=== PATIENT | female | born 1945 | race Caucasian/White ===

== ENCOUNTER → 2019-04-26 | Outpatient (CLI) | payer MEDICARE, BC | END | disposition home or self-care (01) | LOC: Rad HDHVI 13:16 | PROVIDERS: ATTEND Internal Medicine Cardiovascular Disease | DX: I25.10 Atherosclerotic heart disease of native coronary artery without angina pectoris (principal); E78.00 Pure hypercholesterolemia, unspecified | CPT/HCPCS: 78452; 93017; 96374; A9500 ==

== ENCOUNTER → 2020-06-15 | Outpatient (CLI) | payer MEDICARE, BC | END | disposition home or self-care (01) | LOC: Rad HDHVI 13:04 | PROVIDERS: ATTEND Internal Medicine Cardiovascular Disease | DX: I05.8 Other rheumatic mitral valve diseases (principal); I71.2 Thoracic aortic aneurysm, without rupture; J44.9 Chronic obstructive pulmonary disease, unspecified; R06.02 Shortness of breath | CPT/HCPCS: 93306 ==

== ENCOUNTER → 2020-06-27 | Outpatient (CLI) | payer MEDICARE, BC ==
[~2020-06-27] VITALS: Ht 177.8 cm; Wt 85.3 kg
== END | disposition home or self-care (01) ==
LOC: Rad HDHVI 09:02
PROVIDERS: ATTEND Internal Medicine Cardiovascular Disease
DX: I10 Essential (primary) hypertension (principal); E78.00 Pure hypercholesterolemia, unspecified; R06.02 Shortness of breath; J44.9 Chronic obstructive pulmonary disease, unspecified
CPT/HCPCS: 78452; 93017; 96374; A9500

== ENCOUNTER → 2020-11-10 | Outpatient (CLI) | payer MEDICARE, BC | END | disposition home or self-care (01) | LOC: Rad HDHVI 12:04 | PROVIDERS: ATTEND Internal Medicine Cardiovascular Disease | DX: Z01.818 Encounter for other preprocedural examination (principal); I70.0 Atherosclerosis of aorta | CPT/HCPCS: 71046 ==

== ENCOUNTER 2020-12-27 06:06 | Inpatient (IN) | payer MEDICARE, BC ==
[2020-12-27] VITALS (12 sets, daily range): BP systolic 88–141; BP diastolic 53–84
[~2020-12-27] VITALS: Ht 177.8 cm; Wt 89.3 kg
[~2020-12-27 06:06] MED LIST: ALBUAER3 IN; ASCO500T11 PO; ASHW1CAP PO; B-COCAP4 PO; CHOL20007 PO; FLUT1AER3 IN; HYDR-4188 PO; MAGN400T40 PO; MULTCAP45 PO; OLME20TA53 PO; OMEP20TA PO; POTA1080 PO; PRAV20TA3 PO; REVE175S IN; TURM450C PO; VITA100T3 PO; ZINC100T5 PO
[2020-12-27] MEDS ORDERED: CELECOXIB 100 MG CAP PO ONE (06:30)
[2020-12-27] MEDS ORDERED: PREGABALIN CAPSULE 75 MG CAP PO ONE (06:30)
[2020-12-27] MEDS ORDERED: ACETAMINOPHEN IV 1000 MG/100ML (10MG/ML) IV ONE (06:30)
[2020-12-27] MEDS ORDERED: VANCOMYCIN HCL 1000 MG VL ONE ×2 (06:31→07:01)
[2020-12-27] MEDS ORDERED: TRANEXAMIC ACID 20 ML ONE (06:59)
[2020-12-27] MEDS ORDERED: BUPIVACAINE 0.25% INJ 50ML VIAL ONE (06:59)
[2020-12-27] MEDS ORDERED: KETOROLAC TROMETH 30 MG/ML 1ML VIAL ONE (07:01)
[2020-12-27] MEDS ORDERED: TETRACAINE 1% INJ 2 ML VIAL IJ ONE ×2 (07:06→07:08)
[2020-12-27] MEDS ORDERED: SODIUM CHLORIDE LOCK 10 ML ONE (07:13)
[2020-12-27] MEDS ORDERED: fentaNYL CITRATE 100 MCG/2 ML VL ONE (07:13)
[2020-12-27] MEDS ORDERED: MORPHINE SULF(PF) 0.5MG/ML 10ML VIAL ONE (07:13)
[2020-12-27] MEDS ORDERED: ONDANSETRON HCL 4 MG/2 ML VIAL ONE (07:13)
[2020-12-27] MEDS ORDERED: MIDAZOLAM HCL 1MG/1ML-2 ML VIAL ONE (07:13)
[2020-12-27] MEDS ORDERED: PROPOFOL 10 MG/ML 20 ML IV ONE (07:13)
[2020-12-27] MEDS ORDERED: EPINEPHrine HCL 1 MG/1 ML AMP ONE (07:15)
[2020-12-27] MEDS ORDERED: diphenhdrAMINE HCL 50 MG/1 ML VL IV PRN (09:45)
[2020-12-27] MEDS: LACTATED RINGER'S 1,000 ML IV SCH ×2 (09:45→23:01)
[2020-12-27] MEDS ORDERED: traMADol HCL 50 MG TAB PO PRN (09:45)
[2020-12-27] MEDS ORDERED: NALOXONE HCL 0.4 MG/ML VIAL IV PRN (09:45)
[2020-12-27] MEDS ORDERED: HYDROcodone-ACET 5/325MG TAB PO PRN (09:45)
[2020-12-27] MEDS ORDERED: BISACODYL 5 MG EC TAB PO PRN (09:45)
[2020-12-27] MEDS ORDERED: MORPHINE SULF INJ 2 MG/ML SYRINGE 1ML IV PRN (09:45)
[2020-12-27] MEDS ORDERED: NALBUPHINE HCL 10 MG/1ml INJECTION SUBCUT ONE (09:45)
[2020-12-27] MEDS ORDERED: ONDANSETRON HCL 4 MG/2 ML VIAL IV PRN (09:45)
[2020-12-27] MEDS ORDERED: HYDROmorphone HCL 2 MG/ML VL IV PRN ×2 (09:45)
[2020-12-27] MEDS ORDERED: DexAMETHasone SOD PHOS 10MG/1ML VIAL INJ IV PRN (09:45)
[2020-12-27] MEDS ORDERED: NITROGLYCERIN 0.4 MG SL TAB SL PRN (09:45)
[2020-12-27] MEDS ORDERED: diphenhdrAMINE HCL 50 MG/1 ML VL ONE (09:50)
[2020-12-27] MEDS ORDERED: ALBUTEROL SULF HFA 90MCG INH 200DOSE IN SCH (10:00)
[2020-12-27] MEDS ORDERED: ASCORBIC ACID 500 MG TAB PO SCH (10:00)
[2020-12-27] MEDS ORDERED: Fluticasone-Umeclidinium-Vilan (Trelegy Ellipta 100-62.5-25 Mcg/I IN SCH (10:00)
[2020-12-27] MEDS: DOCUSATE SOD 100 MG CAP PO SCH ×2 (10:00→22:59)
[2020-12-27] MEDS: ENOXAPARIN SOD 40 MG/0.4 ML SYRINGE SC SCH (10:00)
[2020-12-27] MEDS: VANCOMYCIN 1GM/250ML 250 ML IV SCH ×2 (10:35→22:58)
[2020-12-27] MEDS: ONDANSETRON HCL 4 MG/2 ML VIAL IV PRN ×2 (13:42→19:02)
[2020-12-27] MEDS ORDERED: AZTREONAM 1GM INJ 1 GM in D5W 5% 50 ML IV SCH ×2 (14:00→22:00)
[2020-12-27] MEDS: CHOLECALCIFEROL (VITD3) 1,000UNIT=25mCg TAB PO SCH (14:14)
[2020-12-27] MEDS: PRAVASTATIN SODIUM 20 MG TAB PO SCH (14:14)
[2020-12-27] MEDS: MULTIPLE VITAMIN TAB PO SCH (14:15)
[2020-12-27] MEDS: SODIUM CHLOR 0.9% PF (SALINE LOCK) 10ML VIAL/SYR IV SCH ×2 (14:23→22:59)
[2020-12-27] MEDS ORDERED: AZTREONAM 1 GM INJ VIAL ONE (23:32)
[2020-12-28] VITALS (15 sets, daily range): BP systolic 105–137; BP diastolic 60–76
[2020-12-28] MEDS: ONDANSETRON HCL 4 MG/2 ML VIAL IV PRN ×2 (01:56→06:25)
[2020-12-28] MEDS: LACTATED RINGER'S 1,000 ML IV SCH ×2 (05:46→15:45)
[2020-12-28] MEDS: SODIUM CHLOR 0.9% PF (SALINE LOCK) 10ML VIAL/SYR IV SCH ×3 (05:47→21:51)
[2020-12-28 06:38] LABS: Hemoglobin 11.6 g/dL (12.2-16.2)
[2020-12-28 06:43] LABS: Hematocrit 33.3 % (36.0-46.0)
[2020-12-28 06:51] LABS: Potassium 4.6 mmol/L (3.5-5.1)
[2020-12-28 06:57] LABS: BUN/Creatinine Ratio 18.8; Bilirubin, Total 0.8 mg/dL (0.2-1.0); Calcium 8.9 mg/dL (8.5-10.1); Total Protein 6.3 g/dL (6.4-8.2)
[2020-12-28] MEDS: ENOXAPARIN SOD 40 MG/0.4 ML SYRINGE SC SCH (09:21)
[2020-12-28] MEDS: ASCORBIC ACID 500 MG TAB PO SCH (09:22)
[2020-12-28] MEDS: DOCUSATE SOD 100 MG CAP PO SCH ×2 (09:23→21:51)
[2020-12-28] MEDS: MULTIPLE VITAMIN TAB PO SCH (09:23)
[2020-12-28] MEDS: CHOLECALCIFEROL (VITD3) 1,000UNIT=25mCg TAB PO SCH (09:25)
[2020-12-28] MEDS ORDERED: LOSARTAN POTASSIUM 25 MG TAB PO SCH (10:00)
[2020-12-28] MEDS: PRAVASTATIN SODIUM 20 MG TAB PO SCH (10:00)
[2020-12-28] MEDS ORDERED: LEVOTHYROXINE SODIUM 25 MCG TAB PO ONE (11:30)
[2020-12-28] MEDS ORDERED: ALBUTEROL SULF 2.5 MG/0.5ML(0.5%) NEB SOLN NEB PRN (11:45)
[2020-12-28] MEDS: PANTOPRAZOLE 40 MG TAB PO SCH (12:09)
[2020-12-28] MEDS: HYDROmorphone HCL 2 MG/ML VL IV PRN ×2 (12:31→21:27)
[2020-12-28] MEDS ORDERED: KETAMINE 50mg/ML 10ml Vial (500mg/10ml) IV ONE (12:43)
[2020-12-28] MEDS: traMADol HCL 50 MG TAB PO PRN (15:25)
[2020-12-28] MEDS ORDERED: TEMAZEPAM 15 MG CAP PO ONE (22:30)
[2020-12-29] MEDS: LACTATED RINGER'S 1,000 ML IV SCH (01:45)
[2020-12-29 05:00] VITALS: BP 134/70
[2020-12-29] MEDS: KETOROLAC TROMETH 30 MG/ML 1ML VIAL IV SCH ×3 (06:28→17:47)
[2020-12-29] MEDS: SODIUM CHLOR 0.9% PF (SALINE LOCK) 10ML VIAL/SYR IV SCH ×3 (06:28→22:13)
[2020-12-29] MEDS: LEVOTHYROXINE SODIUM 25 MCG TAB PO SCH (06:28)
[2020-12-29 07:27] LABS: Basophils # (auto) 0 10 ^3/uL (0-0.2); Basophils % (auto) 0.2 % (0.0-2.0); Eosinophils # (auto) 0.1 10 ^3/uL (0-0.8); Eosinophils % (auto) 0.5 % (0.0-7.0); Hematocrit 31.1 % (36.0-46.0); Hemoglobin 10.6 g/dL (12.2-16.2); Lymphocytes # (auto) 1.2 10 ^3/uL (0.4-5.4); Lymphocytes % (auto) 10.7 % (10.0-50.0); Mean Corpuscular Hemoglobin 33.5 pg (28.0-32.0); Mean Corpuscular Hgb Conc. 34.1 g/dL (32.0-36.0); Mean Corpuscular Volume 98.3 fL (80.0-100.0); Monocytes # (auto) 1.2 10 ^3/uL (0-1.3); Neutrophils # (auto) 8.8 10 ^3/uL (1.6-8.6); Neutrophils % (auto) 77.6 % (37.0-80.0); Platelet Count (auto) 203 10^3/uL (140-450); Red Blood Cells 3.17 10^6/uL (4.0-5.20); White Blood Cell 11.3 10^3/uL (4.4-10.8)
[2020-12-29 07:38] LABS: BUN/Creatinine Ratio 17.6; Potassium 4.1 mmol/L (3.5-5.1)
[2020-12-29] MEDS: HYDROmorphone HCL 2 MG/ML VL IV PRN ×3 (08:51→22:13)
[2020-12-29 09:00] VITALS: BP 142/70
[2020-12-29] MEDS: PANTOPRAZOLE 40 MG TAB PO SCH (11:25)
[2020-12-29] MEDS: CHOLECALCIFEROL (VITD3) 1,000UNIT=25mCg TAB PO SCH (11:26)
[2020-12-29] MEDS: ASCORBIC ACID 500 MG TAB PO SCH (11:26)
[2020-12-29] MEDS: DOCUSATE SOD 100 MG CAP PO SCH ×2 (11:26→22:13)
[2020-12-29] MEDS: MULTIPLE VITAMIN TAB PO SCH (11:26)
[2020-12-29] MEDS: ENOXAPARIN SOD 40 MG/0.4 ML SYRINGE SC SCH (11:26)
[2020-12-29] MEDS: PRAVASTATIN SODIUM 20 MG TAB PO SCH (11:27)
[2020-12-29 13:00] VITALS: BP 135/71
[2020-12-29] MEDS: ACETAMINOPHEN 325 MG TAB PO PRN (16:47)
[2020-12-29 17:44] VITALS: BP 135/84
[2020-12-29] MEDS: diphenhdrAMINE HCL 25 MG CAP PO PRN (20:44)
[2020-12-29 22:00] VITALS: BP 120/62
[2020-12-30] MEDS: ACETAMINOPHEN 325 MG TAB PO PRN (01:21)
[2020-12-30 05:00] VITALS: BP 127/73
[2020-12-30] MEDS: HYDROmorphone HCL 2 MG/ML VL IV PRN ×4 (05:40→20:10)
[2020-12-30] MEDS: SODIUM CHLOR 0.9% PF (SALINE LOCK) 10ML VIAL/SYR IV SCH ×3 (06:00→21:50)
[2020-12-30 06:19] LABS: Hematocrit 29.3 % (36.0-46.0); Hemoglobin 10.2 g/dL (12.2-16.2)
[2020-12-30] MEDS: LEVOTHYROXINE SODIUM 25 MCG TAB PO SCH (06:59)
[2020-12-30 08:40] VITALS: BP 137/79
[2020-12-30] MEDS: MULTIPLE VITAMIN TAB PO SCH (10:04)
[2020-12-30] MEDS: DOCUSATE SOD 100 MG CAP PO SCH ×2 (10:04→21:50)
[2020-12-30] MEDS: PRAVASTATIN SODIUM 20 MG TAB PO SCH (10:04)
[2020-12-30] MEDS: PANTOPRAZOLE 40 MG TAB PO SCH (10:04)
[2020-12-30] MEDS: ASCORBIC ACID 500 MG TAB PO SCH (10:05)
[2020-12-30] MEDS: ENOXAPARIN SOD 40 MG/0.4 ML SYRINGE SC SCH (10:05)
[2020-12-30] MEDS: CHOLECALCIFEROL (VITD3) 1,000UNIT=25mCg TAB PO SCH (10:05)
[2020-12-30 13:10] VITALS: BP 140/75
[2020-12-30] MEDS: traMADol HCL 50 MG TAB PO PRN (13:54)
[2020-12-30] MEDS: diphenhdrAMINE HCL 25 MG CAP PO PRN (21:51)
[2020-12-31] MEDS: HYDROmorphone HCL 2 MG/ML VL IV PRN ×2 (03:01→11:01)
[2020-12-31 05:00] VITALS: BP 134/74
[2020-12-31] MEDS: SODIUM CHLOR 0.9% PF (SALINE LOCK) 10ML VIAL/SYR IV SCH (06:37)
[2020-12-31] MEDS: LEVOTHYROXINE SODIUM 25 MCG TAB PO SCH (06:37)
[2020-12-31 09:00] VITALS: BP 135/68
[2020-12-31] MEDS: traMADol HCL 50 MG TAB PO PRN (09:00)
[2020-12-31] MEDS: DOCUSATE SOD 100 MG CAP PO SCH (09:32)
[2020-12-31] MEDS: ASCORBIC ACID 500 MG TAB PO SCH (09:33)
[2020-12-31] MEDS: ENOXAPARIN SOD 40 MG/0.4 ML SYRINGE SC SCH (09:33)
[2020-12-31] MEDS: PANTOPRAZOLE 40 MG TAB PO SCH (09:33)
[2020-12-31] MEDS: MULTIPLE VITAMIN TAB PO SCH (09:33)
[2020-12-31] MEDS: CHOLECALCIFEROL (VITD3) 1,000UNIT=25mCg TAB PO SCH (09:33)
[2020-12-31] MEDS: PRAVASTATIN SODIUM 20 MG TAB PO SCH (09:33)
[2020-12-31 12:35] VITALS: BP 135/68
== END 2020-12-31 11:30 | disposition home health service (06) | DRG 470 ==
LOC: SUR 06:06 → TELE 09:38 → TELE-EAST 16:54
PROVIDERS: ADMIT Orthopaedic Surgery Adult Reconstructive Orthopaedic Surgery; ATTEND Internal Medicine Cardiovascular Disease
PROC: 0SRC069 Replacement of Right Knee Joint with Oxidized Zirconium on Polyethylene Synthetic Substitute, Cemented, Open Approach (ICD-10-PCS; principal; 2020-12-27 07:15)
DX: M17.11 Unilateral primary osteoarthritis, right knee (principal); E87.1 Hypo-osmolality and hyponatremia; E78.5 Hyperlipidemia, unspecified; J44.9 Chronic obstructive pulmonary disease, unspecified; M06.9 Rheumatoid arthritis, unspecified; Z96.651 Presence of right artificial knee joint; I10 Essential (primary) hypertension; E03.9 Hypothyroidism, unspecified; D64.9 Anemia, unspecified; Z20.822 Contact with and (suspected) exposure to COVID-19; Z88.5 Allergy status to narcotic agent; Z88.0 Allergy status to penicillin; Z91.013 Allergy to seafood
CPT/HCPCS: 36415; 73562; 80048; 80053; 84443; 85014; 85018; 85025; 86850; 86870; 86900; 86901; 97110; 97116; 97530; G0378; J0131; J0171; J1885; J2250; J2405; J2704; J3490; J7060

== ENCOUNTER → 2021-03-06 | Outpatient (CLI) | payer MEDICARE, BC | END | disposition home or self-care (01) | LOC: Rad HDHVI 13:55 | PROVIDERS: ATTEND Internal Medicine Cardiovascular Disease | DX: M25.561 Pain in right knee (principal) | CPT/HCPCS: 73562 ==

== ENCOUNTER → 2021-03-27 | Outpatient (CLI) | payer MEDICARE, BC | END | disposition home or self-care (01) | LOC: XY 07:20 | PROVIDERS: ATTEND Internal Medicine Cardiovascular Disease | DX: T84.53XA Infection and inflammatory reaction due to internal right knee prosthesis, initial encounter (principal); M86.8X6 Other osteomyelitis, lower leg; Z96.651 Presence of right artificial knee joint | CPT/HCPCS: 78315; A9503 ==

== ENCOUNTER → 2022-08-07 | Outpatient (CLI) | payer MEDICARE, BC | END | disposition home or self-care (01) | LOC: Rad HDHVI 10:56 | PROVIDERS: ATTEND Internal Medicine Cardiovascular Disease | DX: I08.3 Combined rheumatic disorders of mitral, aortic and tricuspid valves (principal); R00.2 Palpitations; R06.02 Shortness of breath | CPT/HCPCS: 93306 ==

== ENCOUNTER → 2022-08-13 | Outpatient (CLI) | payer MEDICARE, BC ==
[~2022-08-13] VITALS: Ht 177.8 cm; Wt 72.6 kg
[~2022-08-13] MED LIST changes: +ADENOSINE 61 MG in GIVE UN-DILUTED 0 ML IV ONE; +ADENOSINE 90 MG/30 ML INJ IV ONE
== END | disposition home or self-care (01) ==
LOC: Rad HDHVI 13:00
PROVIDERS: ATTEND Internal Medicine Cardiovascular Disease
DX: I10 Essential (primary) hypertension (principal); D51.9 Vitamin B12 deficiency anemia, unspecified; R53.83 Other fatigue; E78.5 Hyperlipidemia, unspecified; E78.00 Pure hypercholesterolemia, unspecified; Z82.49 Family history of ischemic heart disease and other diseases of the circulatory system; Z79.899 Other long term (current) drug therapy
CPT/HCPCS: 78452; 93005; 96374; 96375; A9500; J0153

== ENCOUNTER → 2022-11-18 | Outpatient (CLI) | payer MEDICARE, BC ==
[~2022-11-18] MED LIST changes: -ADENOSINE 61 MG in GIVE UN-DILUTED 0 ML IV ONE; -ADENOSINE 90 MG/30 ML INJ IV ONE
== END | disposition home or self-care (01) ==
LOC: Rad HDHVI 08:14
PROVIDERS: ATTEND Internal Medicine Cardiovascular Disease
DX: I70.201 Unspecified atherosclerosis of native arteries of extremities, right leg (principal)
CPT/HCPCS: 93925

== ENCOUNTER → 2022-12-25 | Outpatient (CLI) | payer MEDICARE, BC ==
[~2022-12-25] MED LIST changes: +ALBU108A5 IN; +ALPR0.5T PO; +APRE30TA PO; +HYDR-4798 PO; +LEVO75CA3 PO; +MAGN200T11 PO; +NAP500T PO; +POM PO; +POTA99CA2 PO; -REVE175S IN; +REVE175S NEB
[2022-12-25 09:43] VITALS: BP 145/79
[2022-12-25 10:02] VITALS: BP 133/69
== END | disposition home or self-care (01) ==
LOC: Rad HDHVI 09:13
PROVIDERS: ATTEND Internal Medicine Cardiovascular Disease
DX: Z01.818 Encounter for other preprocedural examination (principal); R94.31 Abnormal electrocardiogram [ECG] [EKG]; I73.9 Peripheral vascular disease, unspecified; M47.814 Spondylosis without myelopathy or radiculopathy, thoracic region
CPT/HCPCS: 71046; 93005; G0463; 36415; 80048; 85025; 85610; 85730

== ENCOUNTER 2022-12-26 09:31 | Day surgery (SDC) | payer MEDICARE, BC ==
[2022-12-25 11:45] LABS: Basophils # (auto) 0 10 ^3/uL (0-0.2); Basophils % (auto) 0.5 % (0.0-2.0); Eosinophils # (auto) 0.1 10 ^3/uL (0-0.8); Eosinophils % (auto) 0.8 % (0.0-7.0); Hematocrit 36.6 % (36.0-46.0); Hemoglobin 12.4 g/dL (12.2-16.2); Lymphocytes # (auto) 1.6 10 ^3/uL (0.4-5.4); Lymphocytes % (auto) 20.3 % (10.0-50.0); Mean Corpuscular Hemoglobin 32.8 pg (28.0-32.0); Mean Corpuscular Hgb Conc. 33.8 g/dL (32.0-36.0); Mean Corpuscular Volume 97.1 fL (80.0-100.0); Monocytes # (auto) 0.6 10 ^3/uL (0-1.3); Monocytes % (auto) 8.1 % (0.0-12.0); Neutrophils # (auto) 5.5 10 ^3/uL (1.6-8.6); Neutrophils % (auto) 70.3 % (37.0-80.0); Red Blood Cells 3.77 10^6/uL (4.0-5.20); Red Cell Distribution Width 13.3 % (11.8-14.3); White Blood Cell 7.8 10^3/uL (4.4-10.8)
[2022-12-25 12:06] LABS: INR 1.01 (0.9-1.15); Partial Thromboplastin Time 29.8 sec (24.6-33.4)
[2022-12-25 13:32] LABS: Potassium 4.6 mmol/L (3.5-5.1)
[2022-12-25 13:38] LABS: BUN/Creatinine Ratio 32.2 (10.0-20.0)
[~2022-12-26] VITALS: Ht 177.8 cm; Wt 69.9 kg
[~2022-12-26 09:31] MED LIST changes: -ALBUAER3 IN; -ASCO500T11 PO; -ASHW1CAP PO; -FLUT1AER3 IN; -HYDR-4188 PO; -MAGN200T11 PO; -OLME20TA53 PO; -POTA99CA2 PO; -PRAV20TA3 PO; -TURM450C PO; -VITA100T3 PO
[2022-12-26] MEDS ORDERED: ANGIOMAX 250 MG VIAL IV ONE (15:05)
[2022-12-26] MEDS ORDERED: MIDAZOLAM HCL 2MG/2ML 2ml VIAL (1mg/ml) ONE (15:06)
[2022-12-26] MEDS ORDERED: SODIUM CHL 0.9% 0 ML ONE (15:06)
[2022-12-26] MEDS ORDERED: LIDOCAINE 2%HCL (LOCAL ANESTH.) INJ 20ML MDV ONE ×2 (15:06→15:12)
[2022-12-26] MEDS ORDERED: fentaNYL CITRATE 100 MCG/2 ML VL ONE (15:06)
[2022-12-26] MEDS ORDERED: IOHEXOL 350 MG/ML 500ML BOTTLE IJ ONE (15:16)
[2022-12-26] MEDS ORDERED: diphenhdrAMINE HCL 50 MG/1 ML VL ONE (15:33)
[2022-12-26] MEDS ORDERED: POTA99CA2 PO (16:33)
[2022-12-26] MEDS ORDERED: MAGN200T11 PO (16:33)
== END 2022-12-26 17:33 | disposition home or self-care (01) ==
LOC: CATH 09:31
PROVIDERS: ATTEND Internal Medicine Cardiovascular Disease
DX: I70.213 Atherosclerosis of native arteries of extremities with intermittent claudication, bilateral legs (principal); I10 Essential (primary) hypertension; E78.5 Hyperlipidemia, unspecified; J44.9 Chronic obstructive pulmonary disease, unspecified; Z79.899 Other long term (current) drug therapy
CPT/HCPCS: 36247; 36415; 75716; 80048; 85025; 85610; 85730; C1769; C1894; J1200; J1644; J2250; J3010; Q9967; 99152

== ENCOUNTER → 2023-04-17 | Outpatient (CLI) | payer MEDICARE, BC ==
[~2023-04-17] MED LIST changes: +MAGN200T11 PO; -MAGN400T40 PO; -POM PO; -POTA1080 PO; +POTA99CA2 PO
[2023-04-17 10:01] VITALS: BP 136/79; PULSE 68; RESP 18; O2SAT 98
[2023-04-17 11:09] VITALS: BP 152/64; PULSE 64; RESP 18; O2SAT 99
== END | disposition home or self-care (01) ==
LOC: Rad HDHVI 09:51
PROVIDERS: ATTEND Internal Medicine Cardiovascular Disease
DX: K57.30 Diverticulosis of large intestine without perforation or abscess without bleeding (principal); K46.9 Unspecified abdominal hernia without obstruction or gangrene; K82.8 Other specified diseases of gallbladder; R63.4 Abnormal weight loss
CPT/HCPCS: 74177; G0463; Q9967

== ENCOUNTER → 2023-06-10 | Outpatient (CLI) | payer MEDICARE, BC ==
[~2023-06-10] MED LIST changes: +FURO1TAB33 PO; +levoFLOXacin 500MG 100 ML IV ONE
[2023-06-10 11:45] VITALS: BP 159/74; PULSE 79; RESP 16; O2SAT 100
[2023-06-10 13:14] VITALS: BP 137/66; PULSE 90; RESP 18; O2SAT 98
== END | disposition home or self-care (01) ==
LOC: CHF HDHVI 11:47
PROVIDERS: ATTEND Internal Medicine Cardiovascular Disease
DX: A05.9 Bacterial foodborne intoxication, unspecified (principal); R19.7 Diarrhea, unspecified; R10.9 Unspecified abdominal pain; R25.2 Cramp and spasm
CPT/HCPCS: 96365; G0463; J1956

== ENCOUNTER 2023-06-12 09:06 | Day surgery (SDC) | payer MEDICARE, BC ==
[2023-06-10 14:32] LABS: Basophils # (auto) 0 10 ^3/uL (0-0.2); Basophils % (auto) 0.5 % (0.0-2.0); Eosinophils # (auto) 0.2 10 ^3/uL (0-0.8); Eosinophils % (auto) 1.8 % (0.0-7.0); Hematocrit 34.6 % (36.0-46.0); Hemoglobin 11.8 g/dL (12.2-16.2); Lymphocytes # (auto) 1.5 10 ^3/uL (0.4-5.4); Lymphocytes % (auto) 16.1 % (10.0-50.0); Mean Corpuscular Hemoglobin 32.2 pg (28.0-32.0); Mean Corpuscular Hgb Conc. 34.1 g/dL (32.0-36.0); Mean Corpuscular Volume 94.6 fL (80.0-100.0); Monocytes # (auto) 0.8 10 ^3/uL (0-1.3); Monocytes % (auto) 8.5 % (0.0-12.0); Neutrophils # (auto) 6.8 10 ^3/uL (1.6-8.6); Neutrophils % (auto) 73.1 % (37.0-80.0); Nucleated Red Blood Cells % 0.1 %; Red Blood Cells 3.66 10^6/uL (4.0-5.20); Red Cell Distribution Width 13.4 % (11.8-14.3); White Blood Cell 9.3 10^3/uL (4.4-10.8)
[2023-06-10 15:03] LABS: INR 1.11 (0.9-1.15); Partial Thromboplastin Time 31.4 SEC (24.5-34.5); Prothrombin Time 11.6 sec (9.3-11.8)
[2023-06-10 15:24] LABS: Alanine Aminotransferase 23 U/L (7-40); Albumin 4.1 g/dL (3.2-4.8); Alkaline Phosphatase 134 U/L (46-116); Anion Gap 8 (5-15); Aspartate Aminotransferase 34 U/L (13-40); BUN/Creatinine Ratio 12.8 (10.0-20.0); Bilirubin, Total 0.5 mg/dL (0.2-1.0); Blood Urea Nitrogen 12 mg/dL (9-23); Calcium 9.9 mg/dL (8.5-10.1); Carbon Dioxide 24 mmol/L (20-30); Chloride 102 mmol/L (98-107); Glucose 124 mg/dL (74-106); Potassium 4.5 mmol/L (3.5-5.1); Sodium 134 mmol/L (136-145); Total Protein 6.9 g/dL (5.7-8.2)
[~2023-06-12] VITALS: Ht 177.8 cm; Wt 60.8 kg
[~2023-06-12 09:06] MED LIST changes: +LIDOCAINE VISCOUS 2% 15ML UD ONE; +SODIUM CHLORIDE LOCK 10 ML ONE; +diphenhdrAMINE HCL 50 MG/1 ML VL ONE; -levoFLOXacin 500MG 100 ML IV ONE
[2023-06-12] MEDS: fentaNYL CITRATE 100 MCG/2 ML VL ONE ×3 (09:51→10:05)
[2023-06-12] MEDS: MIDAZOLAM HCL 5 MG/ML-1ML VIAL ONE ×3 (09:51→10:05)
[2023-06-12 10:17] VITALS: TEMP 97.2; O2SAT 94
[2023-06-12 10:47] VITALS: BP 124/65; PULSE 66; RESP 16; O2SAT 97
== END 2023-06-12 11:05 | disposition home or self-care (01) ==
LOC: GI 09:06
PROVIDERS: ATTEND Internal Medicine Gastroenterology
DX: R63.4 Abnormal weight loss (principal); K29.50 Unspecified chronic gastritis without bleeding; K57.30 Diverticulosis of large intestine without perforation or abscess without bleeding
CPT/HCPCS: 36415; 43239; 45378; 80053; 85025; 85610; 85730; J1200; J2250; J3010; J7030; 99152; 99153

== ENCOUNTER → 2024-08-16 | Outpatient (CLI) | payer MEDICARE, BC ==
[~2024-08-16] MED LIST changes: +IOHEXOL 350 MG/ML 100ML IJ ONE; -LIDOCAINE VISCOUS 2% 15ML UD ONE; -MULTCAP45 PO; -SODIUM CHLORIDE LOCK 10 ML ONE; -diphenhdrAMINE HCL 50 MG/1 ML VL ONE
[2024-08-16 10:42] VITALS: BP 141/77; PULSE 95; RESP 16; O2SAT 97
[2024-08-16 11:03] VITALS: BP 153/77; PULSE 93; RESP 18; O2SAT 97
--- NOTE | 2024-08-16 12:40 | DVH ---
Procedure: CT CHEST WITH CONTRAST Reason for study/Clinical History: 79 years old, Female; LUNG LESION. Comparison Study: None available at time of dictation. Exam Date: 08/16/2024 10:50 AM Radiation Dose Information: CT Dose: CTDI volume is 7 mGy. Dose-length product is 253.32 mGy*cm Contrast: Type of contrast: Omni 300 Contrast inject: 100 ML TECHNIQUE: After the uneventful administration of intravenous contrast intravenously, CT imaging was performed through the chest. Coronal and sagittal reformations were performed by the technologist. FINDINGS: Lower Neck: Visualized portions of the thyroid gland are unremarkable. Aorta and Vasculature: Normal caliber of thoracic aorta. Dilated main pulmonary artery. Lymph Nodes: No enlarged intrathoracic lymph nodes. Mediastinum: Heart size is normal. There is no pericardial effusion. The esophagus is fluid-filled. Lungs: Previously seen left upper lobe nodular consolidation is improved compared to prior. Previousl y seen tree-in-bud nodularity in the right upper lobe now has some associated cavitation and is incre ased in size compared to prior. There is again curvilinear consolidation in the right lung increased in size compared to prior. There is new tree-in-bud nodularity in the right lung base. Musculoskeletal: No acute osseous abnormality. Upper abdomen: Limited portions of the upper abdomen are unremarkable. IMPRESSION: 1. Waxing and waning areas of consolidation and nodularity in both lungs. Overall there is improvemen t in the left lung and worsening in the right lung. Findings suggest an infectious/ inflammatory pro cess. Consider an atypical infection such as fungal disease. Clinical correlation and continued foll ow-up to resolution is recommended. If there is high clinical concern, CT-guided biopsy could be perf ormed. 2. Evidence of pulmonary arterial hypertension. 3. All CT scans at this medical facility are performed using dose modulation techniques as appropriat e to a performed exam including the following: Automated exposure control was utilized; Adjustment of the MA And/or KV according to patient size; And use of iterative reconstruction technique. HS:Y
== END | disposition home or self-care (01) ==
LOC: Rad HDHVI 10:13
PROVIDERS: ATTEND Internal Medicine Cardiovascular Disease
DX: I27.21 Secondary pulmonary arterial hypertension (principal); I28.1 Aneurysm of pulmonary artery; R91.8 Other nonspecific abnormal finding of lung field; J98.4 Other disorders of lung
CPT/HCPCS: 71260; G0463; Q9967